=== PATIENT | female | born 1945 | race Caucasian/White ===

== ENCOUNTER → 2019-11-23 17:27 | Outpatient (CLI) | payer MEDICARE, SELFPAY | PROVIDERS: PCP Family Medicine; Referring Provider Family Medicine; Visit Provider Family Medicine | DX: Z11.59 Encounter for screening for other viral diseases (principal) | CPT/HCPCS: 87635; 94799; U0003 ==

== ENCOUNTER 2025-01-22 19:57 | Emergency (ER) | payer MEDICARE, SELFPAY ==
[2025-01-22 19:57] VITALS: BP 129/75; PULSE 53; RESP 16; TEMP 36.8; O2SAT 99
--- NOTE | 2025-01-22 20:08 | EX.ED.DYSGE1 ---
HPI History of Present Illness Chief Complaint: Dizziness Informant: patient Onset/Context/Timing Onset: Today Context: Sudden Onset Timing: Continuous Quality: Off balance Location: Generalized Worsened by: Standing, walking Relieved by: Nothing Narrative Narrative: Patient presents with dizziness that began this morning. Patient states he got up and got out of bed she felt very dizzy. Patient states it feels like she was off balance. Patient states she had to hold onto things while she was walking. Patient states it has been constant throughout the day. Patient states it is worse with standing and walking. Patient states nothing makes it better. Patient denies any chest pain or shortness of breath. Patient denies any nausea or vomiting. Patient denies any fevers or chills. Patient states she does have a mild sore throat. [facility] Medical History (Updated 01/22/25 @ 22:[address] Eleazar Madrid DO) Atrial fibrillation Home Medications ?Medication ?Instructions ?Recorded ?Last Taken ?Type apixaban 5 mg tablet (Eliquis) 5 mg PO BID 01/22/25 Unknown History diazepam 2 mg tablet 2 mg PO TID PRN PRN Vertigo #10 01/22/25 Unknown Rx TABLETS empagliflozin 10 mg tablet 10 mg PO DAILY 01/22/25 Unknown History (Jardiance) metoprolol tartrate 25 mg tablet 25 mg PO Q12.TCU 01/22/25 Unknown History omeprazole 40 mg capsule,delayed 40 mg PO DAILY 01/22/25 Unknown History release potassium chloride 10 mEq 10 meq PO DAILY 01/22/25 Unknown History tablet,extended release torsemide 20 mg tablet 20 mg PO DAILY 01/22/25 Unknown History Allergy/AdvReac Type Severity Reaction Status Date / Time azithromycin AdvReac Mild rash Verified 01/22/25 19:59 Surgical History History of cataract surgery Hx of hysterectomy Hx of gastric bypass Social History Smoking Status: Never smoker ROS ROS ED Constitutional Constitutional ED: Denies chills or fever(s) Eyes Eyes: Denies blurry vision or change in vision ENT ENT ED: Reports sore throat; Denies rhinorrhea Cardiovascular Cardiovascular: Denies chest pain or palpitations Respiratory/Chest Respiratory/Chest: Denies cough or dyspnea Gastrointestinal Gastrointestinal: Denies nausea or vomiting Genitourinary Genitourinary ED: Denies dysuria or hematuria Musculoskeletal Musculoskeletal: Reports neck pain; Denies back pain Integumentary Denies abscess or rash Neurologic Neurologic: Denies headache(s) or weakness Allergic/Immunologic Allergic/Immunologic ED: Denies mouth swelling or urticaria EXAM Physical Exam Const Vital Signs: 01/22/25 19:57 01/22/25 20:57 01/22/25 21:15 Temperature 98.3 F Temperature Source Oral Pulse Rate 53 L 61 Pulse Rate [Lying] 66 Pulse Rate [Sitting (for 1 minute prior to obtaining)] 64 Pulse Rate [Standing (for 1 minute prior to obtaining)] 65 Respiratory Rate 16 12 Blood Pressure 129/75 H 136/57 H Blood Pressure [Lying] 129/63 H Blood Pressure [Sitting (for 1 minute prior to obtaining)] 160/74 H Blood Pressure [Standing (for 1 minute prior to obtaining)] 159/65 H Blood Pressure Mean 93 83 Blood Pressure Mean [Lying] 85 Blood Pressure Mean [Sitting (for 1 minute prior to obtaining)] 102 Blood Pressure Mean [Standing (for 1 minute prior to obtaining)] 96 Pulse Ox 99 100 Oxygen Delivery Method Room Air Room Air 01/22/25 22:00 Temperature Temperature Source Pulse Rate 58 L Pulse Rate [Lying] Pulse Rate [Sitting (for 1 minute prior to obtaining)] Pulse Rate [Standing (for 1 minute prior to obtaining)] Respiratory Rate 15 Blood Pressure 141/68 H Blood Pressure [Lying] Blood Pressure [Sitting (for 1 minute prior to obtaining)] Blood Pressure [Standing (for 1 minute prior to obtaining)] Blood Pressure Mean 92 Blood Pressure Mean [Lying] Blood Pressure Mean [Sitting (for 1 minute prior to obtaining)] Blood Pressure Mean [Standing (for 1 minute prior to obtaining)] Pulse Ox 93 Oxygen Delivery Method Room Air Positive well nourished and well developed General Appearance ED: well developed and NAD HEENT Reports moist mucous membranes HEENT Narrative: There is some mild pharyngeal erythema. There is some postnasal drainage. There are no exudates noted. Eyes PERRL and EOMs intact bilaterally Eyes Narrative: There is no nystagmus noted. Neck supple and no JVD Resp normal respiratory effort and clear to auscultation bilaterally Cardio Rate: bradycardia Rhythm: abnormal rhythm irregularly irregular GI non-tender and non-distended Palpation: soft Neuro oriented x3, CN's II-XII intact bilaterally and no sensory deficits noted Neuro Narrative: [place]-Hallpike maneuver was able to reproduce patient's dizziness somewhat. Sensorium / Orientation: alert Motor Exam: strength 5/5 throughout Psych mental status grossly normal MDM MDM MDM Narrative Medical decision making narrative: Differential diagnosis includes stroke, intracranial bleeding, peripheral vertigo, labyrinthitis, dehydration, electrolyte abnormality, cardiac dysrhythmia, cardiac ischemia, pneumonia, bronchitis, and anxiety. EKG will be obtained to assess for cardiac dysrhythmia and cardiac ischemia. CT scan of the brain will be obtained to assess for stroke and intracranial bleeding. Chest x-ray will be obtained to assess for pneumonia or bronchitis. CBC will be obtained to assess for leukocytosis and anemia. Basic metabolic profile will be obtained to assess for electrolyte abnormality and renal function. High-sensitivity troponin will be obtained to assess for cardiac ischemia. Urinalysis will be obtained to assess for urinary tract infection and hematuria. Lab Data Attestation: I reviewed the patient's lab results. Lab results narrative: CBC was reviewed and was within normal limits. Basic metabolic profile was reviewed. BUN was minimally elevated at 20 and creatinine was minimally elevated at 1.24. The remainder is within normal limits. Initial high-sensitivity troponin was reviewed and was normal at 11. Urinalysis was reviewed. There is no evidence of urinary tract infection or hematuria. Rapid strep was reviewed and was negative. Labs: Laboratory Results - last 24 hr 01/22/25 01/22/25 20:40 21:28 WBC 5.7 RBC 4.55 Hgb 13.1 Hct 40.6 MCV 89.2 MCH 28.8 MCHC 32.3 RDW Std Deviation 47.5 H RDW Coeff of Giovanny 14.6 Plt Count 222 MPV 10.0 Immature Gran % (Auto) 0.400 Neut % (Auto) 51.7 Lymph % (Auto) 35.7 Stevens % (Auto) 8.9 Eos % (Auto) 2.6 Baso % (Auto) 0.7 Absolute Neuts (auto) 3.0 Absolute Lymphs (auto) 2.04 Nucleated RBC % 0 Sodium 139 Potassium 4.4 Chloride 102 Carbon Dioxide 28.2 Anion Gap 8 BUN 20 H Creatinine 1.24 H Est GFR (MDRD) Non-Af 45 L BUN/Creatinine Ratio 15.8 Glucose 113 H Calcium 9.4 Troponin T High Sens 11 Urine Color Straw Urine Clarity Clear Urine pH 7.0 Ur Specific [place] 1.010 Urine Protein Negative Urine Glucose (UA) 1000 H Urine Ketones Negative Urine Occult Blood 10 H Urine Nitrite Negative Urine Bilirubin Negative Urine Urobilinogen Normal Ur Leukocyte Esterase 25 H Urine RBC 0-5 SEEN Urine WBC 0-5 SEEN Ur Squamous Epith Cells 0-5 SEEN Urine Bacteria 0 SEEN Urine Mucus 0 SEEN Radiography Chest X-Ray - ED: 2 View, Read by ED Physician, Read by Radiologist and No Acute Disease Diagnostic Testing: Clinical Impression(s) from Imaging Studies Brain CT 01/22/25 20:57 IMPRESSION: No acute intracranial abnormality. Reading Location: [facility] Chest X-Ray 01/22/25 21:02 IMPRESSION: Cardiomegaly. No acute pulmonary disease. Reading Location: [facility] CT scan of the brain was obtained. There is no acute intracranial abnormality. This was interpreted by the radiologist and was also independently reviewed by myself. PA and lateral chest x-ray was obtained. There are 2 views. On my independent interpretation, lung saul are clear. There is cardiomegaly. Bony thorax is normal. There is no acute process noted. Radiologist also interpreted the x-ray and agrees. EKG Initial EKG: Attestation: I personally reviewed and interpreted this EKG as follows: Interpretation: Atrial Fibrillation (52) Comments: EKG was obtained. On my independent interpretation, it shows atrial fibrillation with a rate of 52. QRS interval is normal at 84 ms. QTc interval is normal at 433 ms. [place] was normal. There are nonspecific ST-T wave changes noted. Prior EKG tracings: not available for review Prior: No Prior Additional Tests and Interventions Additional Tests or Interventions: Rapid strep will be obtained to assess for strep pharyngitis. Treatment and Re-Evaluation :: Patient was given a dose of Valium. Patient was feeling better on reevaluation. Patient was complaining of a sore throat. A rapid strep was ordered. Patient was given a Cepacol lozenge. Patient was advised of her findings. Patient was advised that this could be from a viral upper respiratory infection which could be causing the pharyngitis and as well as the vertigo. Patient was advised that her dizziness may be due to peripheral vertigo. Patient was given a prescription for Valium. Patient was instructed to follow-up with her primary care physician in 5 to 7 days. Patient was instructed to return if worse in any way. Patient understood and was agreeable with the plan. All questions were answered. Discharge Plan Triage Chief Complaint: Dizziness ED Provider: Eleazar Madrid Dx/Rx/DC Orders Clinical Impression: Vertigo, Pharyngitis, Atrial fibrillation Instructions: ED Vertigo, Unspecified, ED Pharyngitis, Viral Prescriptions: New diazepam [diazepam] 2 mg tablet 2 mg PO TID PRN PRN (Reason: Vertigo) Qty: 10 0RF No Action Eliquis 5 mg tablet 5 mg PO BID Jardiance 10 mg tablet 10 mg PO DAILY torsemide 20 mg tablet 20 mg PO DAILY potassium chloride 10 mEq tablet extended release 10 meq PO DAILY omeprazole 40 mg capsule,delayed release(DR/EC) 40 mg PO DAILY metoprolol tartrate 25 mg tablet 25 mg PO Q12.TCU Primary Care Provider: Cindi Cox NP Referrals: Rosalie Márquez DO [Non-Staff, Medical] - 5-7 Days Print Language: Macedonian Disposition Disposition: Home, Self Care
--- NOTE | 2025-01-22 20:24 | EKG12_ITS ---
Test Reason : PALPITATIONS
[2025-01-22 20:49] LABS: Hematocrit 40.6 % (37-47); Hemoglobin 13.1 g/dL (12.0-15.0); Immature Granulocytes Count 0.020 X10^3/uL (0.0-0.0); Mean Corp Hgb Conc 32.3 g/dL (32-36); Mean Corpuscular Volume 89.2 fL (81-99); Mean Platelet Vol. 10.0 fl (6.2-12.0); NRBC Flagged by Analyzer 0 % (0-5); Platelet Count 222 K/mm3 (150-450); RBC Distribution Width CV 14.6 % (11.6-14.6); RBC Distribution Width SD 47.5 fl (35.1-43.9); Red Blood Count 4.55 M/mm3 (4.2-5.4); White Blood Count 5.7 K/mm3 (4.4-11.0)
[2025-01-22 20:57] VITALS: BP 136/57; PULSE 61; RESP 12; O2SAT 100
--- NOTE | 2025-01-22 20:57 | CT_ITS ---
PROCEDURE: CT/Brain/Head without Contrast
--- NOTE | 2025-01-22 21:02 | RAD_ITS ---
PROCEDURE: RAD/Chest PA and Lateral
[2025-01-22 21:05] LABS: Anion Gap 8 (5-15); BUN 20 mg/dL (4-19); BUN/Creat Ratio 15.8 RATIO (10-20); Calcium,Total 9.4 mg/dL (7.6-11.0); Carbon Dioxide 28.2 mmol/L (21.0-32.0); Chloride 102 mmol/L (98-108); Glucose 113 mg/dL (70-99); Potassium 4.4 mmol/L (3.3-5.1)
[2025-01-22 21:13] VITALS: BMI 42.6
[2025-01-22 21:15] VITALS: BP 129/63; BP 159/65; BP 160/74; PULSE 64; PULSE 65; PULSE 66
[2025-01-22 21:23] LABS: Troponin T High Sensitivity 11 ng/L (<=14)
[2025-01-22 21:39] LABS: Mucous, Urine 0 SEEN /hpf (<or=2+)
[2025-01-22 21:50] LABS: Color, Urine Straw (Yellow); Glucose, Dipstick 1000 mg/dl (Normal); Ketone-Dipstick Negative (Negative); Leukocyte Esterase-Dipstick 25 /ul (Negative); Nitrite-Dipstick Negative (Negative); Occult Blood-Urine 10 /ul (Negative); Protein-Dipstick Negative (Negative); Specific Gravity, Urine 1.010 (1.002-1.030); Urine Bilirubin Dipstick Negative (Negative)
[2025-01-22 22:00] VITALS: BP 141/68; PULSE 58; RESP 15; O2SAT 93
[2025-01-22] MEDS: BENZOCAINE/MENTHOL 1 LOZENGE MUCOUS MEM (22:32)
[2025-01-22 22:44] LABS: Red Blood Cells-Urine 0-5 SEEN /hpf (0-5); Squamous Epithelial Cells - UA 0-5 SEEN /hpf (5-10)
[2025-01-22 23:00] VITALS: BP 131/49; PULSE 58; RESP 16; TEMP 36.4; O2SAT 92
[2025-01-22 23:12] LABS: Troponin T High Sens 2 HR 9 ng/L (<=14)
== END 2025-01-22 23:07 | disposition home or self-care (01) ==
PROVIDERS: Emergency Provider Emergency Medicine; PCP Nurse Practitioner Adult Health; Visit Provider Emergency Medicine
DX: J02.9 Acute pharyngitis, unspecified (principal); I48.91 Unspecified atrial fibrillation; R42 Dizziness and giddiness; Z90.710 Acquired absence of both cervix and uterus; Z79.01 Long term (current) use of anticoagulants
CPT/HCPCS: 70450; 71046; 80048; 81001; 84484; 85025; 87651; 93005; 99285; A4216